=== PATIENT | male | born 1975 | race African-American/Black ===

== ENCOUNTER 2017-06-28 19:29 | Emergency (ER) | payer SELFPAY ==
[~2017-06-28] VITALS: Ht 182.9 cm; Wt 72.6 kg
--- NOTE | 2017-06-28 23:20 | NUR ---
PT AMBULATORY TO ER BED 14 C/O DIFFUSE ABDOMINAL PAIN W/ NAUSEA S/P DRUG USE 10 HOURS AGO. GOWNED AND PLACED ON MONITOR. STABLE VITALS. AWAITING MD VELIZ.
--- NOTE | 2017-06-28 23:31 | NUR ---
DR TORRE AT BEDSIDE FOR EVAL.
--- NOTE | 2017-06-28 23:39 | NUR ---
BEHAVIORAL HEALTH TECH AT BEDSIDE FOR BLOOD DRAW.
--- NOTE | 2017-06-28 23:39 | NUR ---
Gabbie lagos in [facility] - 06/28/17 at 2356 by SUBHASH PRECIPITATOR OPERATOR AT BEDSIDE FOR LIBBYAL.
[2017-06-28] MEDS ORDERED: ONDANSETRON 4 MG TAB.RAPDIS ONE (23:47)
[2017-06-28 23:58] LABS: BASOPHILS % (AUTO) 0.8 % (0.0-2.0); EOSINOPHILS # (AUTO) 0.1 /CMM (0.0-0.7); HEMATOCRIT 40 % (39-51); LYMPHOCYTES # (AUTO) 1.5 /CMM (0.8-4.8); LYMPHOCYTES % (AUTO) 28.2 % (20.0-44.0); MEAN CORPUSCULAR HEMOGLOBIN 31 PG (26.0-33.0); MEAN CORPUSCULAR HGB CONC 33 g/dl (31.0-36.0); MEAN CORPUSCULAR VOLUME 95 fL (80-96); MONOCYTES # (AUTO) 0.9 /CMM (0.1-1.30); MONOCYTES % (AUTO) 17.2 % (2.0-12.0); NEUTROPHILS # (AUTO) 2.8 /CMM (1.8-8.9); NEUTROPHILS % (AUTO) 51.8 % (43.0-81.0); PLATELET COUNT (AUTO) 152 /CMM (150-450); RDW COEFFICIENT OF VARIATION 14.8 (11.5-15.0); WHITE BLOOD COUNT (AUTO) 5.4 K/uL (4.3-11.0)
[2017-06-29] MEDS ORDERED: ONDANSETRON 4 MG TAB.RAPDIS SL ONE
[2017-06-29 00:13] LABS: CALCIUM, SERUM 8.6 mg/dL (8.5-10.1); POTASSIUM 2.9 mmol/L (3.5-5.1)
[2017-06-29 00:16] LABS: INR 1.01 (0.87-1.13); PROTHROMBIN TIME 10.5 SECS (9.5-12.7)
[2017-06-29 00:19] LABS: ALBUMIN 3.6 g/dL (3.4-5.0); BILIRUBIN,DIRECT 0.4 mg/dL (0.0-0.2); BILIRUBIN,TOTAL 1.3 mg/dL (0.2-1.0)
[2017-06-29 00:29] LABS: BAND % (MANUAL) 1 % (0.0-5.0); EOSINOPHILS % (MANUAL) 3 % (0-4); LYMPHOCYTES % (MANUAL) 21 % (16-48); MONOCYTES % (MANUAL) 10 % (0-11.0); NEUTROPHILS % (MANUAL) 65 (42-76)
[2017-06-29] MEDS ORDERED: POTASSIUM CHLORIDE 20 MEQ TAB.PRT.SR PO ONE ×2 (00:30→00:37)
--- NOTE | 2017-06-29 00:42 | NUR ---
REPORT TO CHARGE NURSE TEMO FOR ROSIE.
--- NOTE | 2017-06-29 05:37 | NUR ---
PT OK TO DISCHARGE PER DR TORRE, IV removed. Catheter intact and site benign. Pressure and 4x4 applied to site. No bleeding noted.Patient discharged to home in stable condition. Written and verbal after care instructions given. Patient verbalizes understanding of instruction.Patient is awake and alert to self, day, and place. PT ambulatory with a steady gait
[2017-06-29 05:44] VITALS: BP 129/82
== END 2017-06-29 05:45 | disposition home or self-care (01) ==
LOC: ER 19:34
DX: F10.10 Alcohol abuse, uncomplicated (principal); G89.29 Other chronic pain; F19.10 Other psychoactive substance abuse, uncomplicated; K86.1 Other chronic pancreatitis; G40.909 Epilepsy, unspecified, not intractable, without status epilepticus
CPT/HCPCS: 36415; 80048; 80076; 83690; 85025; 85610; 99284; A4606; Q0162; Z7610

== ENCOUNTER 2017-07-01 22:01 | Emergency (ER) | payer SELFPAY ==
[~2017-07-01] VITALS: Ht 182.9 cm; Wt 68.0 kg
--- NOTE | 2017-07-01 22:16 | NUR ---
BIBRA 102 FOR ETOH, FOUND OUTSIDE APT. FIELD BS 82. PT AOX3, RR EVEN AND UNLABORED. NO NVD AT THIS TIME. PT NOT DIAPHORETIC. PT PLACED ON MONITOR. SUGAR CORNELIUS, AT BEDSIDE FOR EVAL.
--- NOTE | 2017-07-01 23:14 | NUR ---
Patient is resting comfortably in bed with eyes closed. Easily aroused. VSS
--- NOTE | 2017-07-02 01:28 | NUR ---
PT SLEEPING COMFORTABLY SEMI-FOWLERS ON BED. AWAKENS TO NAME, BUT THEN TURNS LEFT LATERAL AND PULLS BLANKET OVER HEAD. DECLINES TO ANSWER QUESTIONS. VSS, NAD NOTED. WILL CONT TO MONITOR.
--- NOTE | 2017-07-02 03:30 | NUR ---
PT RESTING COMFORTABLY LEFT LATERAL ON BED. AWAKENS TO NAME. GIVEN BLANKET REQUESTED BY PT, TURNS AWAY AND RETURNS TO SLEEP. VSS, NAD NOTED. WILL CONT TO MONITOR.
--- NOTE | 2017-07-02 04:47 | NUR ---
Patient discharged to home in stable condition. Written and verbal after care instructions given. Patient verbalizes understanding of instruction.
[2017-07-02 04:48] VITALS: BP 116/71
--- NOTE | 2017-07-02 04:49 | NUR ---
Patient ambulates out of ER with stable gait. AAOx4.
== END 2017-07-02 04:50 | disposition home or self-care (01) ==
LOC: ER 22:03
DX: F10.129 Alcohol abuse with intoxication, unspecified (principal); E11.9 Type 2 diabetes mellitus without complications; I10 Essential (primary) hypertension; Z85.9 Personal history of malignant neoplasm, unspecified; Z91.19 Patient's noncompliance with other medical treatment and regimen
CPT/HCPCS: A4606; Z7610

== ENCOUNTER 2017-07-14 04:47 | Emergency (ER) | payer SELFPAY ==
[~2017-07-14] VITALS: Ht 177.8 cm; Wt 79.4 kg
[2017-07-14 04:47] VITALS: BP 127/74
[2017-07-14 05:49] LABS: HEMATOCRIT 38 % (39-51); HEMOGLOBIN 12.8 g/dL (13.5-17.5); MEAN CORPUSCULAR HEMOGLOBIN 31 PG (26.0-33.0); MEAN CORPUSCULAR HGB CONC 33 g/dl (31.0-36.0); MEAN CORPUSCULAR VOLUME 93 fL (80-96); PLATELET COUNT (AUTO) 148 /CMM (150-450); RED BLOOD CELL COUNT(AUTO) 4.13 MIL/uL (4.5-6.0); WHITE BLOOD COUNT (AUTO) 4.1 K/uL (4.3-11.0)
--- NOTE | 2017-07-14 06:01 | NUR ---
Patient eloped from facility. ER MD notified.
[2017-07-14 06:12] LABS: ALBUMIN 3.5 g/dL (3.4-5.0); BILIRUBIN,DIRECT 0.3 mg/dL (0.0-0.2); BILIRUBIN,TOTAL 0.7 mg/dL (0.2-1.0); CALCIUM, SERUM 8.5 mg/dL (8.5-10.1); CREATININE 0.9 mg/dL (0.6-1.3); TOTAL PROTEIN, SERUM 7.8 g/dL (6.4-8.2)
[2017-07-14 06:58] LABS: BAND % (MANUAL) 2 % (0.0-5.0); EOSINOPHILS % (MANUAL) 1 % (0-4); LYMPHOCYTES % (MANUAL) 34 % (16-48); MONOCYTES % (MANUAL) 5 % (0-11.0); NEUTROPHILS % (MANUAL) 58 (42-76)
== END 2017-07-14 06:21 | disposition left against medical advice (07) ==
LOC: ER 04:48
DX: Z53.21 Procedure and treatment not carried out due to patient leaving prior to being seen by health care provider (principal)
CPT/HCPCS: 36415; 80048; 80076; 83690; 85025; 99281; A4606; Z7610; Z7502

== ENCOUNTER 2017-07-27 21:00 | Emergency (ER) | payer SELFPAY ==
[~2017-07-27] VITALS: Ht 177.8 cm; Wt 77.1 kg
[2017-07-28 05:40] VITALS: BP 108/66
--- NOTE | 2017-07-28 05:46 | NUR ---
Patient given written and verbal discharge instructions. Patient verbalizes understanding of instructions. Patient is ambulatory with steady gait. Refuses offer of fdc placement. Patient given list of available shelters in surrounding area. Pt refuses to sign DC instructions. Pt threw DC instructions in trash prior to walking out of ER; instructions removed from trash and placed in shredding box to protect pt's private information.
== END 2017-07-28 06:00 | disposition home or self-care (01) ==
LOC: ER 21:02
DX: F10.129 Alcohol abuse with intoxication, unspecified (principal); I10 Essential (primary) hypertension; G40.909 Epilepsy, unspecified, not intractable, without status epilepticus; R73.09 Other abnormal glucose
CPT/HCPCS: 82962 ×2; 99283; A4606; Z7610

== ENCOUNTER 2017-08-03 21:14 | Emergency (ER) | payer SELFPAY ==
[~2017-08-03] VITALS: Ht 177.8 cm; Wt 77.1 kg
--- NOTE | 2017-08-03 21:22 | NUR ---
PT BIBRA FROM THE STREETS TO ER BED 16. BYSTANDER CALLED, PT IS SLEEPING W/ A BOTTLE OF VODKA. NO OBVIOUS TRAUMA NOTED. STABLE VITALS. AWAITING MD VELIZ.
[2017-08-03] MEDS ORDERED: KETOROLAC TROMETHAMINE INJ 30 MG/ML VIAL ONE (22:32)
[2017-08-03] MEDS ORDERED: ONDANSETRON HCL/PF 4 MG/2 ML VIAL ONE (22:32)
--- NOTE | 2017-08-03 23:13 | NUR ---
pt is sleeping. on monitor. stable vitals. will cont to monitor.
--- NOTE | 2017-08-03 23:26 | NUR ---
report to zackary person for heather.
--- NOTE | 2017-08-04 00:23 | NUR ---
PT SLEEPING COMFORTABLY LEFT LATERAL ON BED. AWAKENS TO NAME THEN TURNS OVER AND RETURNS TO SLEEP. VSS, NAD NOTED. PT ON MONITOR. WILL CONT TO MONITOR.
[2017-08-04] MEDS: IV NS 0.9% 1,000 ML BAG IV ONE ×2 (01:29→01:40)
[2017-08-04] MEDS: ONDANSETRON HCL/PF 4 MG/2 ML VIAL IVP ONE ×3 (01:30→02:41)
[2017-08-04] MEDS: KETOROLAC TROMETHAMINE INJ 30 MG/ML VIAL IV ONE ×2 (01:30→01:43)
[2017-08-04] MEDS ORDERED: ONDANSETRON HCL/PF 4 MG/2 ML VIAL ONE (01:44)
[2017-08-04] MEDS ORDERED: ONDANSETRON HCL/PF 4 MG/2 ML VIAL IV ONE (02:00)
--- NOTE | 2017-08-04 02:02 | NUR ---
PT SLEEPING COMFORTABLY SEMIFOWLERS ON BED. AWAKENS TO NAME; GIVEN BLANKET PT REQUESTS AND RETURNS TO SLEEP. VSS, NAD NOTED. PT ON MONITOR. WILL CONT TO MONITOR.
--- NOTE | 2017-08-04 04:20 | NUR ---
PT SLEEPING COMFORTABLY SEMIFOWLERS ON BED. AWAKENS TO NAME THEN RETURNS TO SLEEP. VSS, NAD NOTED. PT ON MONITOR. WILL CONT TO MONITOR.
[2017-08-04 05:44] VITALS: BP 118/64
--- NOTE | 2017-08-04 05:44 | NUR ---
IV removed. Catheter intact and site benign. Pressure and 4x4 applied to site. No bleeding noted.Patient discharged to home in stable condition. Written and verbal after care instructions given. Patient verbalizes understanding of instruction.
== END 2017-08-04 05:45 | disposition home or self-care (01) ==
LOC: ER 21:16
DX: F10.20 Alcohol dependence, uncomplicated (principal); I10 Essential (primary) hypertension; G40.909 Epilepsy, unspecified, not intractable, without status epilepticus
CPT/HCPCS: 96361; 96374; 96375; 96376; 99284; A4606; J1885; J2405 ×2; J7030; Z7610

== ENCOUNTER 2017-08-04 10:45 | Emergency (ER) | payer SELFPAY ==
[~2017-08-04] VITALS: Ht 182.9 cm; Wt 68.0 kg
--- NOTE | 2017-08-04 11:00 | NUR ---
assume pt care. resting in bed. here for etoh. seen in er multiple times for same reason. on monitior. stable vitals. seen by ed provider. will continue to monitor.
--- NOTE | 2017-08-04 11:20 | NUR ---
iv line started blood drawn and sent to lab.
[2017-08-04] MEDS ORDERED: ONDANSETRON HCL/PF 4 MG/2 ML VIAL ONE (11:27)
[2017-08-04] MEDS ORDERED: IV NS 0.9% 1,000 ML BAG IV ONE (11:30)
[2017-08-04] MEDS ORDERED: Thiamine 100 MG in IV D5W 50 ML IV SCH (11:30)
[2017-08-04] MEDS ORDERED: ONDANSETRON HCL/PF 4 MG/2 ML VIAL IVP ONE (11:30)
[2017-08-04] MEDS ORDERED: IV NS 0.9% 1,000 ML IV ONE (11:30)
[2017-08-04 11:34] LABS: BASOPHILS # (AUTO) 0.1 /CMM (0.0-0.2); BASOPHILS % (AUTO) 0.7 % (0.0-2.0); EOSINOPHILS % (AUTO) 0.1 % (0.0-6.0); HEMATOCRIT 38 % (39-51); HEMOGLOBIN 11.7 g/dL (13.5-17.5); LYMPHOCYTES # (AUTO) 0.9 /CMM (0.8-4.8); LYMPHOCYTES % (AUTO) 8.1 % (20.0-44.0); MEAN CORPUSCULAR HEMOGLOBIN 30 PG (26.0-33.0); MEAN CORPUSCULAR HGB CONC 31 g/dl (31.0-36.0); MEAN CORPUSCULAR VOLUME 96 fL (80-96); MONOCYTES # (AUTO) 0.3 /CMM (0.1-1.30); MONOCYTES % (AUTO) 2.5 % (2.0-12.0); NEUTROPHILS # (AUTO) 9.7 /CMM (1.8-8.9); NEUTROPHILS % (AUTO) 88.6 % (43.0-81.0); PLATELET COUNT (AUTO) 196 /CMM (150-450); RDW COEFFICIENT OF VARIATION 13.6 (11.5-15.0); RED BLOOD CELL COUNT(AUTO) 3.95 MIL/uL (4.5-6.0)
[2017-08-04 11:46] LABS: CALCIUM, SERUM 8.2 mg/dL (8.5-10.1); CARBON DIOXIDE 26 mmol/L (21-32); CHLORIDE 99 mmol/L (98-107); CREATININE 0.7 mg/dL (0.6-1.3); GLUCOSE 101 mg/dL (74-106); POTASSIUM 3.5 mmol/L (3.5-5.1); SODIUM SERUM 137 mmol/L (136-145); UREA NITROGEN, BLOOD 6 mg/dL (7-18)
[2017-08-04 11:53] LABS: ALANINE AMINOTRANSFERASE 96 U/L (12-78); ALBUMIN 3.6 g/dL (3.4-5.0); ALKALINE PHOSPHATASE 119 U/L (46-116); ASPARTATE AMINOTRANSFERASE 169 U/L (15-37); BILIRUBIN,DIRECT 0.3 mg/dL (0.0-0.2); BILIRUBIN,TOTAL 0.7 mg/dL (0.2-1.0); LIPASE 86 U/L (73-393); TOTAL PROTEIN, SERUM 7.7 g/dL (6.4-8.2)
[2017-08-04] MEDS ORDERED: Magnesium 1 GM/2 ML VIAL IV ONE (12:00)
[2017-08-04 12:03] LABS: TROPONIN I < 0.017 ng/mL (0.00-0.056)
[2017-08-04] MEDS ORDERED: Magnesium 1GM/D5W 100ML PREMIX 200 ML IV ONE (12:16)
[2017-08-04 13:05] LABS: SALICYLATE 0.2 mg/dL (2.8-20.0)
--- NOTE | 2017-08-04 15:45 | NUR ---
Patient discharged to home in stable condition. Written and verbal after care instructions given. Patient verbalizes understanding of instruction.IV removed. Catheter intact and site benign. Pressure and 4x4 applied to site. No bleeding noted.
[2017-08-04 15:47] VITALS: BP 125/76
== END 2017-08-04 15:47 | disposition home or self-care (01) ==
LOC: ER 10:46
DX: R53.1 Weakness (principal); F10.129 Alcohol abuse with intoxication, unspecified; I10 Essential (primary) hypertension
CPT/HCPCS: 36415; 80048; 80076; 80329; 82010; 83690; 83735; 84484; 85025; 93005; 96365; 96367; 96375; 99285; A4606; G0480 ×2; J2405; J3411; J3475; J7030 ×2; J7060; Z7610

== ENCOUNTER 2017-08-06 20:45 | Emergency (ER) | payer SELFPAY ==
[~2017-08-06] VITALS: Ht 180.3 cm; Wt 75.7 kg
[2017-08-06 20:50] VITALS: BP 123/86
[2017-08-06] MEDS ORDERED: IV NS 0.9% 1,000 ML BAG IV ONE (21:00)
[2017-08-06 21:01] LABS: HEMATOCRIT 42 % (39-51); HEMOGLOBIN 13.7 g/dL (13.5-17.5); MEAN CORPUSCULAR HEMOGLOBIN 31 PG (26.0-33.0); MEAN CORPUSCULAR HGB CONC 33 g/dl (31.0-36.0); MEAN CORPUSCULAR VOLUME 95 fL (80-96); PLATELET COUNT (AUTO) 156 /CMM (150-450); RDW COEFFICIENT OF VARIATION 13.6 (11.5-15.0); RED BLOOD CELL COUNT(AUTO) 4.41 MIL/uL (4.5-6.0); WHITE BLOOD COUNT (AUTO) 7.1 K/uL (4.3-11.0)
[2017-08-06 21:13] LABS: CALCIUM, SERUM 8.4 mg/dL (8.5-10.1); CREATININE 0.9 mg/dL (0.6-1.3); POTASSIUM 3.6 mmol/L (3.5-5.1)
[2017-08-06 21:18] LABS: ALBUMIN 3.4 g/dL (3.4-5.0); BILIRUBIN,DIRECT 0.2 mg/dL (0.0-0.2); BILIRUBIN,TOTAL 0.4 mg/dL (0.2-1.0); TOTAL PROTEIN, SERUM 8.3 g/dL (6.4-8.2)
[2017-08-06 21:56] LABS: BAND % (MANUAL) 1 % (0.0-5.0); LYMPHOCYTES % (MANUAL) 30 % (16-48); MONOCYTES % (MANUAL) 6 % (0-11.0); NEUTROPHILS % (MANUAL) 63 (42-76)
== END 2017-08-06 22:15 | disposition home or self-care (01) ==
LOC: ER 20:46
DX: K70.10 Alcoholic hepatitis without ascites (principal); F10.129 Alcohol abuse with intoxication, unspecified; R51 Headache; I10 Essential (primary) hypertension; G40.909 Epilepsy, unspecified, not intractable, without status epilepticus
CPT/HCPCS: 36415; 70450; 80048; 80076; 83690; 85025; 96360; 99285; A4606; J7030; Z7610

== ENCOUNTER 2017-08-07 07:28 | Emergency (ER) | payer SELFPAY ==
[~2017-08-07] VITALS: Ht 182.9 cm; Wt 68.0 kg
[2017-08-07 07:28] VITALS: BP 132/80
[2017-08-07] MEDS ORDERED: HYDROCODONE/APAP 5/325MG 1 EACH TABLET ONE (07:47)
[2017-08-07] MEDS ORDERED: HYDROCODONE/APAP 5/325MG 1 EACH TABLET PO ONE (08:00)
== END 2017-08-07 07:54 | disposition home or self-care (01) ==
LOC: ER 07:30
DX: R10.9 Unspecified abdominal pain (principal); I10 Essential (primary) hypertension; E11.9 Type 2 diabetes mellitus without complications; F32.9 Major depressive disorder, single episode, unspecified; F10.10 Alcohol abuse, uncomplicated; G40.909 Epilepsy, unspecified, not intractable, without status epilepticus
CPT/HCPCS: 99282; A4606; Z7610

== ENCOUNTER 2017-08-10 19:43 | Emergency (ER) | payer SELFPAY ==
[~2017-08-10] VITALS: Ht 182.9 cm; Wt 77.1 kg
[2017-08-10 19:43] VITALS: BP 123/76
--- NOTE | 2017-08-10 22:36 | NUR ---
CALLED PT IN [place], NO RESPONSE
== END 2017-08-10 22:38 | disposition left against medical advice (07) ==
LOC: ER 19:44
DX: Z53.21 Procedure and treatment not carried out due to patient leaving prior to being seen by health care provider (principal)
CPT/HCPCS: A4606; Z7610

== ENCOUNTER → 2017-08-22 | Emergency (ER) | payer SELFPAY ==
[~2017-08-22] VITALS: Ht 167.6 cm; Wt 70.8 kg
[2017-08-22 16:06] VITALS: BP 145/84
== END | disposition home or self-care (01) ==
LOC: ER 15:47
DX: F10.129 Alcohol abuse with intoxication, unspecified (principal); E11.9 Type 2 diabetes mellitus without complications; F32.9 Major depressive disorder, single episode, unspecified; I10 Essential (primary) hypertension; Z59.0 Homelessness
CPT/HCPCS: 99283; A4606; Z7610

== ENCOUNTER 2017-08-27 14:01 | Emergency (ER) | payer SELFPAY ==
[~2017-08-27] VITALS: Ht 170.2 cm; Wt 64.9 kg
[2017-08-27 14:01] VITALS: BP 123/78
--- NOTE | 2017-08-27 14:55 | NUR ---
BIB RA, PT WAS FOUND IN PUBLIC POOL, BATHING, ETOH NOTED, NAD NOTED, VSS, RESP EVEN AND UNLABORED. WAITING FOR MD VELIZ.
== END 2017-08-27 18:15 | disposition home or self-care (01) ==
LOC: ER 14:03
DX: F15.10 Other stimulant abuse, uncomplicated (principal); F10.10 Alcohol abuse, uncomplicated; I10 Essential (primary) hypertension; E11.9 Type 2 diabetes mellitus without complications; F32.9 Major depressive disorder, single episode, unspecified; Z59.0 Homelessness
CPT/HCPCS: 82962 ×2; 99283; A4606; Z7610

== ENCOUNTER 2017-08-27 22:33 | Emergency (ER) | payer SELFPAY ==
[~2017-08-27] VITALS: Ht 177.8 cm; Wt 61.2 kg
[2017-08-27 22:33] VITALS: BP 130/76
== END 2017-08-28 02:48 | disposition left against medical advice (07) ==
LOC: ER 22:34
DX: Z53.21 Procedure and treatment not carried out due to patient leaving prior to being seen by health care provider (principal)
CPT/HCPCS: A4606; Z7610

== ENCOUNTER 2017-09-08 23:00 | Emergency (ER) | payer SELFPAY ==
[~2017-09-08] VITALS: Ht 170.2 cm; Wt 63.5 kg
[2017-09-08 23:00] VITALS: BP 125/80
--- NOTE | 2017-09-09 | NUR ---
CALLED FOR PT IN WR; PT SLEEPING AND DECLINES TO BE SEEN AT THIS TIME. "LET ME SLEEP."
--- NOTE | 2017-09-09 01:15 | NUR ---
CALLED FOR PT IN WR. NO RESPONSE.
--- NOTE | 2017-09-09 02:00 | NUR ---
CALLED FOR PT IN WR AGAIN; STILL NO RESPONSE.
--- NOTE | 2017-09-09 03:00 | NUR ---
PER ADMITTING STAFF AND SECURITY, PT HAS NOT BEEN IN THE WR FOR SEVERAL HOURS.
== END 2017-09-09 03:47 | disposition left against medical advice (07) ==
LOC: ER 23:01
DX: Z53.21 Procedure and treatment not carried out due to patient leaving prior to being seen by health care provider (principal)
CPT/HCPCS: A4606; Z7610

== ENCOUNTER 2017-09-10 22:00 | Emergency (ER) | payer SELFPAY ==
[~2017-09-10] VITALS: Ht 172.7 cm; Wt 68.0 kg
--- NOTE | 2017-09-10 22:10 | NUR ---
bIbra for low blood sugar, per EMS it was 57. Patient received awake and alert, appears in no apparent distress. Respiration even and unlabored. Skin is warm and touch and non diaphoretic. Afebrile. vss
--- NOTE | 2017-09-10 23:06 | NUR ---
URINE SAMPLE SENT TO LAB
--- NOTE | 2017-09-10 23:23 | NUR ---
Patient is resting comfortably in bed with eyes closed. Easily aroused. VSS
[2017-09-10 23:31] LABS: HEMATOCRIT 40 % (39-51); HEMOGLOBIN 13.1 g/dL (13.5-17.5); MEAN CORPUSCULAR HEMOGLOBIN 31 PG (26.0-33.0); MEAN CORPUSCULAR HGB CONC 33 g/dl (31.0-36.0); MEAN CORPUSCULAR VOLUME 96 fL (80-96); PLATELET COUNT (AUTO) 153 /CMM (150-450); RDW COEFFICIENT OF VARIATION 16.1 (11.5-15.0); RED BLOOD CELL COUNT(AUTO) 4.19 MIL/uL (4.5-6.0); WHITE BLOOD COUNT (AUTO) 4.8 K/uL (4.3-11.0)
[2017-09-10 23:39] LABS: CALCIUM, SERUM 8.2 mg/dL (8.5-10.1); CREATININE 0.9 mg/dL (0.6-1.3); POTASSIUM 3.5 mmol/L (3.5-5.1)
[2017-09-10 23:42] LABS: APPEARANCE,URINE CLEAR (CLEAR); BILIRUBIN,URINE NEGATIVE (NEGATIVE); BLOOD, URINE 2+ Ery/uL (NEGATIVE); COLOR,URINE YELLOW (YELLOW); KETONES,URINE 1+ (NEGATIVE); LEUKOCYTE ESTERASE ,URINE NEGATIVE (NEGATIVE); NITRITE, URINE NEGATIVE (NEGATIVE); PROTEIN,URINE 2+ mg/dl (NEGATIVE); UGLUCOSE NEGATIVE (NEGATIVE)
[2017-09-10 23:45] LABS: INR 0.93 (0.87-1.13); PROTHROMBIN TIME 9.7 SECS (9.5-12.7)
[2017-09-10 23:50] LABS: BACTERIA,URINE None seen /HPF (None Seen); RBC,URINE 0-2 /HPF (0-2)
[2017-09-10 23:51] LABS: SQUAMOUS EPITHELIAL CELL,UR Few /HPF (None Seen)
[2017-09-11 01:54] LABS: LYMPHOCYTES % (MANUAL) 35 % (16-48); MONOCYTES % (MANUAL) 4 % (0-11.0); NEUTROPHILS % (MANUAL) 61 (42-76)
--- NOTE | 2017-09-11 03:06 | NUR ---
Patient discharged to home in stable condition. Written and verbal after care instructions given. Patient verbalizes understanding of instruction. ambulatory with a steady gait noted. pt aaox4 no acute distress noted, resp even and unlabored. pt refuse to sign aci.
[2017-09-11 03:07] VITALS: BP 125/77
== END 2017-09-11 03:08 | disposition home or self-care (01) ==
LOC: ER 22:01
DX: E11.649 Type 2 diabetes mellitus with hypoglycemia without coma (principal); F32.9 Major depressive disorder, single episode, unspecified; I10 Essential (primary) hypertension; F10.10 Alcohol abuse, uncomplicated; Z59.0 Homelessness
CPT/HCPCS: 36415; 80048; 81001; 82962; 85025; 85610; 99284; A4606; Z7610; 81000-TC

== ENCOUNTER 2017-10-03 13:50 | Emergency (ER) | payer SELFPAY ==
[~2017-10-03] VITALS: Ht 172.7 cm; Wt 72.6 kg
[2017-10-03 13:53] VITALS: BP 118/71
[2017-10-03] MEDS ORDERED: ACETAMINOPHEN 325 MG TABLET PO ONE (14:00)
[2017-10-03] MEDS ORDERED: IBUPROFEN 600 MG TABLET PO ONE ×2 (14:00→14:08)
[2017-10-03] MEDS ORDERED: ACETAMINOPHEN ES 500 MG TABLET ONE (14:08)
== END 2017-10-03 15:20 | disposition home or self-care (01) ==
LOC: ER 13:52
DX: B34.9 Viral infection, unspecified (principal); F32.9 Major depressive disorder, single episode, unspecified; F10.10 Alcohol abuse, uncomplicated; E11.9 Type 2 diabetes mellitus without complications; Z59.0 Homelessness
CPT/HCPCS: 99283; A4606; Z7610

== ENCOUNTER 2020-02-14 06:16 | Emergency (ER) | payer MEDICAID ==
[~2020-02-14] VITALS: Ht 182.9 cm; Wt 69.4 kg
--- NOTE | 2020-02-14 06:23 | NUR ---
PT BIBRA 878 FROM [employer]. PT ENDORSES AUDITORY HEARING VOICES. PT DENIES HI/ SI. PT AAOX4, CALM, RESPIRATIONS EVEN AND UNLABORED ON RA W/ NAD NOTED. PT CONNECTED TO THE MONITOR AND POX.
--- NOTE | 2020-02-14 06:31 | NUR ---
BELONGINGS PLACED TO LOCKER, SAFETY RPECAUTIONS IMPLEMENTED. DR VU AT BEDSIDE
[2020-02-14] MEDS ORDERED: HALOPERIDOL LACTATE INJ 5 MG/ML VIAL ONE (06:39)
[2020-02-14 06:53] LABS: BASOPHILS # (AUTO) 0.1 /CMM (0.0-0.2); BASOPHILS % (AUTO) 1.7 % (0.0-2.0); HEMATOCRIT 39 % (39-51); HEMOGLOBIN 12.8 g/dL (13.5-17.5); LYMPHOCYTES # (AUTO) 1.5 /CMM (0.8-4.8); LYMPHOCYTES % (AUTO) 41.3 % (20.0-44.0); MEAN CORPUSCULAR HGB CONC 33 g/dl (31.0-36.0); MEAN CORPUSCULAR VOLUME 95 fL (80-96); MONOCYTES # (AUTO) 0.3 /CMM (0.1-1.30); MONOCYTES % (AUTO) 8.5 % (2.0-12.0); NEUTROPHILS # (AUTO) 1.8 /CMM (1.8-8.9); NEUTROPHILS % (AUTO) 47.5 % (43.0-81.0); PLATELET COUNT (AUTO) 200 /CMM (150-450); RED BLOOD CELL COUNT(AUTO) 4.05 MIL/uL (4.5-6.0); WHITE BLOOD COUNT (AUTO) 3.7 K/uL (4.3-11.0)
[2020-02-14] MEDS ORDERED: HALOPERIDOL LACTATE INJ 5 MG/ML VIAL IM ONE (07:00)
[2020-02-14 07:05] LABS: CALCIUM, SERUM 7.7 mg/dL (8.5-10.1); CREATININE 0.8 mg/dL (0.6-1.3); POTASSIUM 3.6 mmol/L (3.5-5.1)
[2020-02-14 07:11] LABS: ALBUMIN 3.1 g/dL (3.4-5.0); BILIRUBIN,DIRECT 0.3 mg/dL (0.0-0.2); BILIRUBIN,TOTAL 0.5 mg/dL (0.2-1.0); TOTAL PROTEIN, SERUM 7.9 g/dL (6.4-8.2)
[2020-02-14 07:13] LABS: SALICYLATE 0.8 mg/dL (2.8-20.0)
--- NOTE | 2020-02-14 09:34 | NUR ---
PATIENT VERBALIZED BEING SUICIDAL, PLAN IS TO OD ON DRUGS.
[2020-02-14 10:07] LABS: APPEARANCE,URINE Clear (CLEAR); BILIRUBIN,URINE Negative (NEGATIVE); BLOOD, URINE Negative Ery/uL (NEGATIVE); COLOR,URINE Yellow (YELLOW); KETONES,URINE Negative (NEGATIVE); LEUKOCYTE ESTERASE ,URINE Negative (NEGATIVE); NITRITE, URINE Negative (NEGATIVE); PH,URINE 5.5 (5.0-8.0); PROTEIN,URINE Negative (NEGATIVE); UGLUCOSE Negative (NEGATIVE)
[2020-02-14 10:08] LABS: RBC,URINE 0-2 /HPF (0-2)
[2020-02-14 10:09] LABS: BACTERIA,URINE Rare /HPF (None Seen); SQUAMOUS EPITHELIAL CELL,UR Rare /HPF (None Seen); WBC,URINE 0-2 /HPF (0-3)
--- NOTE | 2020-02-14 10:27 | NUR ---
CALLED VICTOR HUGO FOR EVAL. WILL BE HERE WITHIN 1-2 HOURS.
--- NOTE | 2020-02-14 10:45 | NUR ---
patient resting no distress noted.
--- NOTE | 2020-02-14 12:06 | NUR ---
PATIENT IN BED ASLEEP, HOOKED TO MONITOR, EASILY AROUSABLE BY VOICE. SITTER AT BEDSIDE. WILL CONTINUE TO MONITOR ACCORDINGLY. KEPT SAFE AND COMFORTABLE
--- NOTE | 2020-02-14 14:08 | NUR ---
PATIENT IN BED ASLEEP, EASILY AROUSABLE BY VOICE. HOOKED TO MONITOR, SITTER AT BEDSIDE. WILL CONTINUE TO MONITOR ACCORDINGLY. KEPT SAFE AND COMFORTABLE
[2020-02-14] MEDS ORDERED: LORAZEPAM INJ 2 MG/ML VIAL IV ONE (19:00)
--- NOTE | 2020-02-14 20:46 | NUR ---
PER SOCAL INTAKE, UNABLE TO ACCEPT DUE TO POS FOR OPIATES. AWARE.
[2020-02-14] MEDS ORDERED: LORAZEPAM INJ 2 MG/ML VIAL IM ONE (21:30)
[2020-02-14] MEDS ORDERED: LORAZEPAM INJ 2 MG/ML VIAL ONE (22:36)
--- NOTE | 2020-02-14 23:09 | NUR ---
PT RESTING COMFORTABLY IN BED. VITAL SIGNS STABLE. SITTER STILL AT BEDSIDE. WILL CONTINUE TO MONITOR
--- NOTE | 2020-02-14 23:14 | NUR ---
Gabbie lagos in ED - 02/14/20 at 2315 by RATNA PT UNABLE TO PROVIDE URINE SAMPLE AT THIS TIME. MD MONREAL
--- NOTE | 2020-02-14 23:15 | NUR ---
Gabbie lagos in [facility] - 02/14/20 at 2315 by RATNA OYSTER FISHERMAN AT BEDSIDE FOR BLOOD DRAW
--- NOTE | 2020-02-15 07:24 | NUR ---
PATIENT IN BED ASLEEP, EASILY AROUSABLE BY VOICE. TUCKED IN BLANKET, HOOKED TO MONITOR, SITTER AT BEDSIDE. KEPT SAFE AND COMFORTABLE. WILL CONTINUE TO MONITOR ACCORDINGLY.
--- NOTE | 2020-02-15 08:33 | NUR ---
EVELIA contacted Arjun at [facility] in regards to [facility] stating they cannot accept the pt due to pt being positive for opiates. Arjun informed SW, he will call [facility] and f/u. EVELIA received a call from Sam at [facility] requesting for MACHINE MARKER to fax clinicals. Clinicals faxed to [facility] intake department. EVELIA updated ED RN Rivas.
--- NOTE | 2020-02-15 08:54 | NUR ---
BREAKFAST TRAY PROVIDED, TOLERATING PO WELL
--- NOTE | 2020-02-15 09:55 | NUR ---
CALL BACK FROM [facility] SANTIAGO,HOUSE SUP. REPORT GIVEN ACCEPTED FOR [place] AFTER 1 HR, WANTS US TO CALL INTAKE FOR BED AND ACCEPTING MD
--- NOTE | 2020-02-15 10:12 | NUR ---
DEVORA SANTIAGO OF [facility]. PROVIDED ACCEPTING MD: DR CHRISTIANSON AND DR SUAREZ CALL [place] [phone] FOR ROOM NUMBER, UNIT AND TIME PATIENT IS GOING TO BE SENT
--- NOTE | 2020-02-15 10:20 | NUR ---
[facility] ETA [id number]
[2020-02-15 11:51] VITALS: BP 127/76
--- NOTE | 2020-02-15 12:06 | NUR ---
REPORT GIVEN TO EMT FOR PT TRANSFER TO [facility] FOR ROSIE.
== END 2020-02-15 12:29 ==
LOC: EDBD 06:17 → ER 06:17
DX: F10.229 Alcohol dependence with intoxication, unspecified (principal); R44.3 Hallucinations, unspecified; I10 Essential (primary) hypertension; E11.9 Type 2 diabetes mellitus without complications; F32.9 Major depressive disorder, single episode, unspecified; F17.200 Nicotine dependence, unspecified, uncomplicated; Z59.0 Homelessness; Y90.8 Blood alcohol level of 240 mg/100 ml or more
CPT/HCPCS: 36415; 80048; 80076; 80305; 80307 ×2; 80329; 81001; 83690; 85025; 96372 ×2; 99285; G0480; J1630; J2060; 81000-TC

== ENCOUNTER 2020-04-25 19:10 | Inpatient (IN) | payer MEDICAID ==
[~2020-04-25] VITALS: Ht 182.9 cm; Wt 60.3 kg
[2020-04-25] MEDS ORDERED: IV NS 0.9% 1,000 ML BAG IV ONE (19:30)
--- NOTE | 2020-04-25 19:34 | NUR ---
PATIENT CAME TO ER BIB RA FROM THE STREETS C/O "I DID A LOT OF DRUGS". PATIENT IS AAOX3. PATIENT DOES ADMIT TO DRINKING ALCOHOL. PATIENT IS BREATHING EVENLY AND UNLABORED ON ROOM AIR .CONNECTED TO THE MONITOR.
--- NOTE | 2020-04-25 19:37 | NUR ---
TECH AT BEDSIDE FOR EKG
--- NOTE | 2020-04-25 19:40 | NUR ---
BLOOD IS DRAWN AND SENT WITH ADMINISTRATIVE ACCOUNTANT TO THE LAB.
[2020-04-25 19:44] LABS: BASOPHILS % (AUTO) 0.6 % (0.0-2.0); HEMATOCRIT 44 % (39-51); HEMOGLOBIN 14.7 g/dL (13.5-17.5); LYMPHOCYTES # (AUTO) 2.1 /CMM (0.8-4.8); LYMPHOCYTES % (AUTO) 39.2 % (20.0-44.0); MEAN CORPUSCULAR HGB CONC 33 g/dl (31.0-36.0); MEAN CORPUSCULAR VOLUME 95 fL (80-96); MONOCYTES # (AUTO) 0.4 /CMM (0.1-1.30); MONOCYTES % (AUTO) 7.8 % (2.0-12.0); NEUTROPHILS # (AUTO) 2.8 /CMM (1.8-8.9); NEUTROPHILS % (AUTO) 52.4 % (43.0-81.0); PLATELET COUNT (AUTO) 324 /CMM (150-450); RED BLOOD CELL COUNT(AUTO) 4.68 MIL/uL (4.5-6.0); WHITE BLOOD COUNT (AUTO) 5.4 K/uL (4.3-11.0)
[2020-04-25 19:59] LABS: ALBUMIN 2.6 g/dL (3.4-5.0); BILIRUBIN,DIRECT 0.2 mg/dL (0.0-0.2); BILIRUBIN,TOTAL 0.4 mg/dL (0.2-1.0); CALCIUM, SERUM 7.9 mg/dL (8.5-10.1); TOTAL PROTEIN, SERUM 9.7 g/dL (6.4-8.2)
[2020-04-25 20:02] LABS: POTASSIUM 2.6 mmol/L (3.5-5.1)
--- NOTE | 2020-04-25 20:08 | NUR ---
URINE COLLECTED AND SENT TO THE LAB.
[2020-04-25] MEDS ORDERED: IOHEXOL-300 100 ML VIAL IV ONE (20:14)
[2020-04-25] MEDS ORDERED: IV NS 0.9% 250 ML IV ONE (20:14)
[2020-04-25] MEDS ORDERED: CT SWABBABLE VALVE TRANS SET 1 EA INFUS.SET MC ONE (20:14)
[2020-04-25 20:38] LABS: APPEARANCE,URINE Clear (CLEAR); BILIRUBIN,URINE Negative (NEGATIVE); BLOOD, URINE Negative Ery/uL (NEGATIVE); COLOR,URINE Yellow (YELLOW); KETONES,URINE Negative (NEGATIVE); LEUKOCYTE ESTERASE ,URINE Negative (NEGATIVE); NITRITE, URINE Negative (NEGATIVE); PROTEIN,URINE 30 mg/dl (NEGATIVE); UGLUCOSE Negative (NEGATIVE); UROBILINOGEN,URINE 0.2 EU/dL (0.2)
[2020-04-25] MEDS ORDERED: POTASSIUM CHLORIDE 20 MEQ TAB.PRT.SR PO ONE ×3 (22:00→23:00)
[2020-04-25] MEDS ORDERED: MORPHINE SULFATE INJ 10 MG/ML DISP.SYRIN IV ONE (22:30)
[2020-04-25] MEDS ORDERED: IV NS 0.9% 1,000 ML IV ONE (22:30)
[2020-04-25] MEDS ORDERED: Z GUARD REMEDY 2 OZ OINT TP PRN (23:00)
[2020-04-25] MEDS ORDERED: MAG HYDROX/AL HYDROX/SIMETH 30 ML UDC PO PRN (23:00)
[2020-04-25] MEDS ORDERED: ONDANSETRON HCL/PF 4 MG/2 ML VIAL IVP PRN (23:00)
[2020-04-25] MEDS ORDERED: TEMAZEPAM 15 MG CAPSULE PO PRN (23:00)
--- NOTE | 2020-04-26 00:20 | NUR ---
REPORT GIVEN TO RUBY SANTIAGO FOR ROSIE.
--- NOTE | 2020-04-26 00:59 | NUR ---
PATIENT TAKEN TO ASSIGNED ROOM.
[2020-04-26 01:00] VITALS: BP 103/68
[2020-04-26] MEDS: IV NS 0.9% 1,000 ML IV PRN ×2 (02:36→14:07)
[2020-04-26 04:00] VITALS: BP 133/75
[2020-04-26] MEDS: LORAZEPAM INJ 2 MG/ML VIAL IV PRN ×3 (04:38→14:11)
--- NOTE | 2020-04-26 07:28 | NUR ---
RN notes Patient was admitted at 0100 in no apparent distress. Breathing even and unlabored. Room air well tolerated. No complaint of pain or discomfort. Alert and oriented, verbally able to communicate needs. Ambulatory. Vital signs wnl. Needs attended. Kept clean and dry. Endorsed to next shift for continuity of care
--- NOTE | 2020-04-26 07:35 | NUR ---
Patient awake, alert and oriented x3. Patient complains of pain on right upper arm. Noted with painful abscess on RU arm. IV line removed from that side . Will inform attending doctor.
[2020-04-26 08:00] VITALS: BP 139/92
[2020-04-26] MEDS ORDERED: FLUO20CA36 PO (08:15)
[2020-04-26] MEDS ORDERED: HALO2TAB2 PO (08:15)
[2020-04-26] MEDS ORDERED: INSU100V3 SQ (08:15)
[2020-04-26] MEDS ORDERED: METF-440 PO (08:15)
[2020-04-26] MEDS: PANTOPRAZOLE 40 MG TABLET.DR PO SCH (08:28)
[2020-04-26] MEDS: THIAMINE HCL 100 MG TABLET PO SCH (08:28)
[2020-04-26 08:37] LABS: BASOPHILS # (AUTO) 0.1 /CMM (0.0-0.2); BASOPHILS % (AUTO) 0.6 % (0.0-2.0); EOSINOPHILS % (AUTO) 0.2 % (0.0-6.0); HEMATOCRIT 42 % (39-51); HEMOGLOBIN 13.7 g/dL (13.5-17.5); LYMPHOCYTES # (AUTO) 2.5 /CMM (0.8-4.8); LYMPHOCYTES % (AUTO) 24.2 % (20.0-44.0); MEAN CORPUSCULAR HGB CONC 33 g/dl (31.0-36.0); MEAN CORPUSCULAR VOLUME 96 fL (80-96); MONOCYTES # (AUTO) 0.6 /CMM (0.1-1.30); MONOCYTES % (AUTO) 5.9 % (2.0-12.0); NEUTROPHILS # (AUTO) 7.1 /CMM (1.8-8.9); NEUTROPHILS % (AUTO) 69.1 % (43.0-81.0); PLATELET COUNT (AUTO) 311 /CMM (150-450); RED BLOOD CELL COUNT(AUTO) 4.42 MIL/uL (4.5-6.0); WHITE BLOOD COUNT (AUTO) 10.3 K/uL (4.3-11.0)
--- NOTE | 2020-04-26 08:46 | NUR ---
WOUND CARE CONSULT:SEEN PATIENT AT BEDSIDE, PATIENT PRESENTS WITH RT FOOT OPEN WOUND, PRESENT ON ADMISSION,RECOMMENDATION MADE FOR SKIN PROTECTION AND CARE, DISCUSSED WITH NURSING STAFF, CURRENT ALLEGRA SCALE IS 19, DEFER TO DPM, WILL SEE MD MICAH IN AGREEMENT WITH PLAN OF CARE Addendum: 04/26/20 at 0854 by SEB TIJERINA RN Amended: Links added.
[2020-04-26] MEDS ORDERED: CEPHALEXIN MONOHYDRATE 500 MG CAPSULE PO SCH (09:00)
--- NOTE | 2020-04-26 10:25 | NUR ---
A new IV line to the left FA 22 G , flushing well
[2020-04-26 11:36] LABS: CALCIUM, SERUM 7.8 mg/dL (8.5-10.1); CREATININE 0.7 mg/dL (0.6-1.3); MAGNESIUM 1.7 mg/dL (1.8-2.4); PHOSPHORUS 2.8 mg/dL (2.5-4.9); POTASSIUM 3.3 mmol/L (3.5-5.1)
[2020-04-26 12:00] VITALS: BP 139/80
[2020-04-26] MEDS ORDERED: VANCOMYCIN 1 GM in IV D5W 250 ML IV SCH (12:00)
[2020-04-26] MEDS: ENSURE ENLIVE 237 ML LIQUID (VANILLA) PO SCH ×2 (13:11→17:00)
--- NOTE | 2020-04-26 14:38 | NUR ---
Social service consult requested by for homelessness. Per MD notes, pt is a 45-year-old male pt who presented to the emergency department via EMS; he was [place] free[place], where a bystander called 911-he was found to be altered and intoxicated. Pt admits to illicit drug use, and alcohol abuse. The patient also states that his right foot is infected-open superficial wound noted with mild swelling noted on assessment. The patient states that he was recently diagnosed with HIV-about 4 weeks ago, but he does not know his last CD4 count. The patient also states that he was diagnosed with hepatitis C, as a result of his drug abuse. MOBILE SECURITY ARCHITECT conducted chart review and contacted the pt on his bedside phone due to pt PUI for Covid-19. MOBILE SECURITY ARCHITECT introduced self and purpose of the call. Pt is alert and oriented x 4 with appropriate affect. MOBILE SECURITY ARCHITECT is familiar with the pt from several ED visits for suicidal ideations with a plan. Pt reports to be homeless on and off for 5 years. Pt is originally from [place]. Pt admits to substance use and /or abuse. Pt reports, he last used methamphetamines and heroin last week. Pt reports to drink a litre of alcohol daily. Pt's UDS is positive for methamphetamines, opiates and benzodiazepines. Pt reports to have a psychiatric diagnosis of Bipolar and Schizophrenia. Pt's medications include Haldol, Trazodone, and Prozac. Pt reports to have some suicidal ideations but no plan at this time. SW to inform [facility] for a psychiatrist consult for the pt. Pt has no source of income. MOBILE SECURITY ARCHITECT encouraged pt to go to Dept of Public Cle[employer] Supervisor and apply for GR and Food stamps. Pt decline to speak about his HIV diagnosis when asked. MOBILE SECURITY ARCHITECT to provide pt with Homeless resources upon discharge. Homeless patient wavier form to be signed by the pt at time of discharge. SW provided active listening, emotional support, supportive counseling, validation of feelings and positive coping skills. director volunteer services is available for support as needed.
[2020-04-26] MEDS: CLOTRIMAZOLE 1% 15 GM TUBE TP SCH (15:51)
[2020-04-26] MEDS: MUPIROCIN OINT 2% 22 GM TUBE TP SCH (15:51)
[2020-04-26 16:00] VITALS: BP 120/80
--- NOTE | 2020-04-26 19:13 | NUR ---
Patient resting in bed , remains stable on room air. All needs attended and patient kept comfortable. Will endorse to next shift for heather.
--- NOTE | 2020-04-26 19:30 | NUR ---
ms rn opening note received patient in bed. a/ox 3. tolerating room air. respirations are even and unlabored. no s/s sob noted. c/o pain, informed will administer pain medication when electronic controls repairer supervisor obtains vitals. in no apparent distress. iv access in LFA#22 running ns@125ml/hr. bed is low and locked, hob elevated in semi fowlers, side rials up x2. call light within reach. will continue to monitor.
[2020-04-26] MEDS: VANCOMYCIN 1 GM in IV D5W 250 ML IV SCH (19:52)
[2020-04-26 20:00] VITALS: BP 128/80
[2020-04-26] MEDS: ACETAMINOPHEN 325 MG TABLET PO PRN (20:21)
--- NOTE | 2020-04-26 20:21 | NUR ---
ms rn note administered prn tylenol 650mg for pain in right foot. will continue to monitor.
[2020-04-27] MEDS: IV NS 0.9% 1,000 ML IV PRN (03:21)
[2020-04-27 04:00] VITALS: BP 135/84
[2020-04-27] MEDS: VANCOMYCIN 1 GM in IV D5W 250 ML IV SCH (04:09)
[2020-04-27] MEDS: ACETAMINOPHEN 325 MG TABLET PO PRN (04:11)
--- NOTE | 2020-04-27 04:12 | NUR ---
ms rn note administered tylenol 650mg for pain in right foot. will continue to monitor.
--- NOTE | 2020-04-27 06:52 | NUR ---
ms rn closing note patient in bed. a/ox 3. remains tolerating room air. respirations are even and unlabored. no sob noted. managed right foot pain with tylenol. no distress. iv access maintained in LFA#22 running ns@125ml/hr. bed remains low and locked, hob elevated in semi fowlers, side rials up x2. call light within reach. will endorse to next shift
[2020-04-27 07:02] LABS: CALCIUM, SERUM 7.8 mg/dL (8.5-10.1); CREATININE 0.9 mg/dL (0.6-1.3); POTASSIUM 3.2 mmol/L (3.5-5.1)
[2020-04-27] MEDS: PANTOPRAZOLE 40 MG TABLET.DR PO SCH (07:58)
[2020-04-27 08:00] VITALS: BP 130/93
[2020-04-27] MEDS ORDERED: Magnesium 1 GM/2 ML VIAL IV ONE (08:00)
--- NOTE | 2020-04-27 08:15 | NUR ---
MS RN NOTES PATIENT IN BED A/OX4 ON COVID ISOLATION . NO PAIN OR DISTRESS NOTED AT THIS TIME. PATIENT IS AMBULATORY USES URINAL. CALL LIGHT WITHIN REACH BED AT THE LOWEST POSITION LOCKED, WILL CONTINUE TO MONITOR.
[2020-04-27] MEDS ORDERED: Magnesium 1GM/D5W 100ML PREMIX 100 ML IV SCH (08:35)
[2020-04-27] MEDS: THIAMINE HCL 100 MG TABLET PO SCH (08:38)
[2020-04-27] MEDS: ENSURE ENLIVE 237 ML LIQUID (VANILLA) PO SCH (08:38)
[2020-04-27] MEDS: POTASSIUM CHLORIDE 20 MEQ TAB.PRT.SR PO SCH ×2 (08:38→10:29)
[2020-04-27] MEDS: MUPIROCIN OINT 2% 22 GM TUBE TP SCH (08:39)
[2020-04-27] MEDS: CLOTRIMAZOLE 1% 15 GM TUBE TP SCH (08:39)
[2020-04-27] MEDS ORDERED: SULF1TAB48 PO (09:24)
--- NOTE | 2020-04-27 10:21 | NUR ---
RECEIVED CALL FROM LAB PATIENT ALAYNA MCARTHUR MD AWARE NO NEW ORDERS FOR DISCHARGE TODAY.
--- NOTE | 2020-04-27 10:45 | NUR ---
MS RN NOTES (DISCHARGE) PATIENT IS AWAKE ALERT ORIENTED, ABLE TO WALK VITALS WNL. PATIENT`S BELONGINGS RETURNED AND HE REFUSED TO TAKE HIS SOCKS. IV REMOVED ID BAND REMOVED. PATIENT WAS TRANSFERRED WITH WHEELCHAIR BY CHANNEL SUPERVISOR TO THE [facility]. PATIENT REFUSED HIS WOUND PICTURE TO BE TAKEN, REFUSED VACCINES. PER POST ACUTE CARE REGISTERED NURSE HE REFUSED THE RESOURCES AND SIGNED THE WAIVER FORM. MEDICATION LIST GIVEN TO PATIENT.
[2020-04-28 09:07] LABS: *BASOS 1 % (Not Estab.); *EOS 1 % (Not Estab.); *HCT 40.6 % (37.5-51.0); *HGB 12.3 g/dL (13.0-17.7); *IMMATURE GRANULOCYTES 0 % (Not Estab.); *LYMPHOCYTES 40 % (Not Estab.); *LYMPHS, ABSOLUTE 1.8 x10E3/uL (0.7-3.1); *MCH 30.1 pg (26.6-33.0); *MCHC 30.3 g/dL (31.5-35.7); *MCV 100 fL (79-97); *MONOCYTES 9 % (Not Estab.); *MONOS, ABSOLUTE 0.4 x10E3/uL (0.1-0.9); *NEUTROPHILS 49 % (Not Estab.); *NEUTROPHILS, ABSOLUTE 2.3 x10E3/uL (1.4-7.0); *PLT 279 x10E3/uL (150-450); *RBC 4.08 x10E6/uL (4.14-5.80); *RDW 14.3 % (11.6-15.4)
[2020-04-29 14:11] LABS: *% CD 4 POS. LYMPH 39.1 % (30.8-58.5); *% CD 8 POS. LYMPH 37.2 % (12.0-35.5); *ABSOLUTE CD 4 HELPER 704 /uL (359-1519); *ABSOLUTE CD 8 SUPPRESSOR 670 /uL (109-897); *CD4/CD8 RATIO 1.05 (0.92-3.72)
== END 2020-04-27 12:25 | disposition home or self-care (01) | DRG 383 ==
LOC: ER 19:11 → TELE1 23:47 → MEDSG1 04-26 00:33
PROVIDERS: ADMIT Nurse Practitioner Acute Care; ATTEND Internal Medicine
DX: L03.115 Cellulitis of right lower limb (principal); E87.6 Hypokalemia; E86.0 Dehydration; G93.41 Metabolic encephalopathy; Z59.0 Homelessness; E44.0 Moderate protein-calorie malnutrition; K76.0 Fatty (change of) liver, not elsewhere classified; K86.1 Other chronic pancreatitis; I10 Essential (primary) hypertension; F10.20 Alcohol dependence, uncomplicated; E11.9 Type 2 diabetes mellitus without complications; B35.1 Tinea unguium; B19.20 Unspecified viral hepatitis C without hepatic coma; M20.42 Other hammer toe(s) (acquired), left foot; M20.41 Other hammer toe(s) (acquired), right foot; F15.10 Other stimulant abuse, uncomplicated; F11.10 Opioid abuse, uncomplicated; R74.0 Nonspecific elevation of levels of transaminase and lactic acid dehydrogenase [LDH]; E88.09 Other disorders of plasma-protein metabolism, not elsewhere classified; M62.50 Muscle wasting and atrophy, not elsewhere classified, unspecified site; Z68.1 Body mass index [BMI] 19.9 or less, adult; R91.1 Solitary pulmonary nodule; G93.40 Encephalopathy, unspecified; L02.413 Cutaneous abscess of right upper limb; M79.662 Pain in left lower leg; M79.661 Pain in right lower leg; L97.529 Non-pressure chronic ulcer of other part of left foot with unspecified severity; L97.519 Non-pressure chronic ulcer of other part of right foot with unspecified severity; Z79.84 Long term (current) use of oral hypoglycemic drugs; F10.229 Alcohol dependence with intoxication, unspecified; Y90.8 Blood alcohol level of 240 mg/100 ml or more
CPT/HCPCS: 36415; 70450-TC; 71260-TC; 72125-TC; 73630-TC; 80048-TC; 80076-TC; 80202-TC; 80305; 81000-TC; 82550-TC; 83735-TC; 84100-TC; 85025-TC; 86360; 87081-TC; G0378; G0480; J2060; J3370; J3475; J7030; J7050; J7060; Q9967; U0003-CS